=== PATIENT | female | born 1990 | race Caucasian/White ===

== ENCOUNTER 2018-07-17 12:16 | Emergency (ER) | payer OTHER ==
[2018-07-17 13:00] LABS: #Basophils 0.1 thou/uL (0.0-0.2); #Lymphocytes 2.1 thou/uL (1.20-3.40); #Monocytes 0.5 thou/uL (0.11-0.59); %Basophils 1.1 % (0.0-1.0); %Eosinophils 0.5 % (0.0-10.0); %Lymphocytes 24.4 % (21.0-51.0); %Monocytes 5.5 % (0.0-10.0); %Neutrophils 68.7 % (42.0-75.0); Hemoglobin 14.6 g/dL (12.0-16.0); Mean Corpuscular Hemoglobin 30.8 pg (27.0-31.0); Mean Corpuscular Volume 90.6 fL (78.0-98.0); Platelet Count 331 thou/uL (130-400); RBC Distribution Width 12.5 % (11.5-14.5); Red Blood Cell (RBC) Count 4.73 mill/uL (4.20-5.40); White Blood Cell (WBC) Count 8.8 thou/uL (4.8-10.8)
[2018-07-17 13:21] LABS: ALT (SGPT) 19 U/L (8-55); AST (SGOT) 20 U/L (5-34); Albumin 4.4 g/dL (3.5-5.0); Alkaline Phosphatase 79 U/L (40-150); Anion Gap 15 mmol/L (10-20); BUN (Urea Nitrogen) 9 mg/dL (7.0-18.7); Bilirubin, Total 0.6 mg/dL (0.2-1.2); Calc. Creatinine Clearance 0 mL/min (70-130); Calcium 9.4 mg/dL (7.8-10.44); Carbon Dioxide 21 mmol/L (22-29); Chloride 108 mmol/L (98-107); Estimated GFR-MDRD 85; Globulin 3.4 g/dL (2.4-3.5); Glucose 90 mg/dL (70-105); Potassium 3.9 mmol/L (3.5-5.1); Protein, Total 7.8 g/dL (6.0-8.3); Sodium 140 mmol/L (136-145)
[2018-07-17 13:25] LABS: Bilirubin Negative (Negative); Blood, Urine Large (Negative); Clarity CLOUDY (Clear); Glucose, Urine (Dipstick) Negative (Negative); Leukocyte Small (Negative); Nitrite Negative (Negative); Protein, Urine (Dipstick) 30 mg/dL (Neg-Trace); Specific Gravity, Urine 1.019 (1.002-1.036); Urobilinogen 0.2 mg/dL (0.2-1.0)
[2018-07-17 13:27] LABS: Bacteria/HPF None Seen HPF (None Seen); Hyaline Casts/LPF 0-3 HYALINE CAST LPF (0-3 Hyaline); Pathc Cast-AUWi Flag 0.31 (0-2.49); RBC/HPF GREATER THAN 50-TNTC HPF (0-3); Squamous Epithelial 0-3 HPF (0-3); WBC/HPF 0-3 HPF (0-3)
--- NOTE | 2018-07-18 08:27 | CON ---
DATE OF CONSULTATION: 07/17/2018 REFERRING PHYSICIAN: Dr. Prescott. CHIEF COMPLAINT: Cervical ectopic . HISTORY OF PRESENT ILLNESS: The patient is a 28-year-old female G1, P0, who was seen at the [facility] for proof of and in the process of evaluation who was noted to have what appeared t o be a cervical ectopic with no heart tones. The patient was referred to [facility] for further evaluation. Upon arrival, I was contacted for evaluation of the patient. The pat ient reports that she has an LMP of 05/25/2018 and reports that she had tested positive for last week on 2 separate occasions and had a routine visit at the [facility] for a scheduled pro of of . There she had an ultrasound performed, which did not demonstrate an intrauterine pr egnancy, but demonstrated a gestational sac within the cervical neck. The patient denies fever. She reports she has had some spotting and a little bit of cramping. The patient denies any history of f ever, fall, chest pain, shortness of breath, nausea, vomiting, diarrhea, constipation, any new rashes . She reports some mild abdominal pain, but none significant at the time of my evaluation, nor they gives her any concern and some spotting. She denies any urinary urgency or frequency. PAST MEDICAL HISTORY: Negative. PAST SURGICAL HISTORY: Negative. SOCIAL HISTORY: Reports social alcohol use and drinks about twice a month. Denies any drug or tobac co use. ALLERGIES: No known drug allergies. MEDICATIONS: None. PHYSICAL EXAMINATION: VITAL SIGNS: Blood pressure is 125/82, pulse of 99, respiratory rate of 16, temperature 98.4, pain 0 . GENERAL: She appears to be in no acute distress. She is alert and oriented, cooperative, pleasant t o interact with. HEENT: Head is normocephalic, atraumatic. LUNGS: Clear to auscultation bilaterally. HEART: Has a regular rate and rhythm. ABDOMEN: Soft with very minimal tenderness to palpation. EXTREMITIES: Nontender, nonedematous. GENITOURINARY: Has been deferred. ultrasound demonstrates a gestational sac within the cervix containing a yolk sac and pole and no heart tones present. ASSESSMENT AND PLAN: The patient is a 28-year-old female G1, P0 with an ectopic based on hansel gaffney's ultrasound. She has been counseled on the importance use of methotrexate in an attempt to end this in a safe manner. Patient has no pole or no visible heartbeat with pole. She has been counseled to the potential side effects of methotrexate including abdominal pain and s ores and bleeding. The patient has also been shared the importance of continued followup to ensure t hat the methotrexate is working properly and has agreed to return on Sunday day #04 after dosing. She has expressed understanding and has agreed to return. She also has been given precautions that s he experiences increasing bleeding or pain that she needs to return as it may be signs of worsening o f her condition and also the patient has been given instructions to follow up with [facility] for outpatient care. In the meantime, the patient has been given instructions to come to the emergency room for follow up.
== END 2018-07-17 15:51 | disposition home or self-care (01) ==
LOC: ERS 12:16
DX: O00.80 Other ectopic pregnancy without intrauterine pregnancy (principal)
CPT/HCPCS: 80053; 81003; 81015; 84702; 85025; 86900; 86901; 96360; 96372; J9250